=== PATIENT | male | born 1930 | race Caucasian/White ===

== ENCOUNTER 2018-06-24 09:07 | Emergency (ER) | payer MEDICARE, BC ==
[2018-06-24 09:14] VITALS: TEMP 98.2
--- NOTE | 2018-06-24 10:00 | ED ---
Male Urogenital HPI - General Chief complaint: Urogenital Stated complaint: bladder ca pt Time Seen by Provider: 06/24/18 09:16 Source: patient Mode of arrival: wheelchair Limitations: no limitations - History of Present Illness Initial comments: 88-year-old male patient with past medical history significant for bladder cancer and occasional hematuria presents to the emergency department today for complaints of acute urinary retention and suprapubic discomfort. Patient is a transfer from [facility]. Patient reports that starting this morning he was unable to urinate and developed significant suprapubic discomfort. Patient states that he presented to [facility] and they placed a 22 fr Dover catheter. They were unable to keep the catheter from becoming obstructed so they sent him here for possible continuous bladder irrigation and urology consult. Upon arrival patient reports that he feels the catheter is obstructed and he is again developing suprapubic discomfort. Patient denies any fever, chills, nausea, vomiting, constipation, or diarrhea. Patient is also reporting leg pain from the knees down. Patient states his been going on for several weeks and daughter reports it may be related to his arthritis. Daughter reports the patient does have a blood disorder however they 're unable to determine the exact nature of the condition. She reports that he does develop epistaxis occasionally and bruises easily. Patient denies any recent rash, shortness breath, chest pain, back pain, numbness, tingling, dizziness, weakness, headache, visual changes, or any other complaints. Patient does have bladder cancer which they are unable to treat due MD Complaint: testicle pain - Related Data Home Medications Medication Instructions Recorded Confirmed Acetaminophen Tab [Tylenol Tab] 650 mg PO Q6H PRN 06/24/18 06/24/18 Ammonium Lactate Cream [Lac-Hydrin 1 applic TOPICAL BID PRN 06/24/18 06/24/18 12% Cream] Bethanechol [Urecholine] 10 mg PO TID 06/24/18 06/24/18 Escitalopram [Lexapro] 5 mg PO DAILY 06/24/18 06/24/18 Furosemide [Lasix] 40 mg PO BID 06/24/18 06/24/18 LORazepam [Ativan] 1 mg PO QID PRN 06/24/18 06/24/18 Lisinopril [Zestril] 10 mg PO DAILY 06/24/18 06/24/18 Mirtazapine [Remeron] 15 mg PO HS 06/24/18 06/24/18 Potassium Chloride ER [K-Dur 10] 10 meq PO AC-BID 06/24/18 06/24/18 Pravastatin Sodium [Pravachol] 20 mg PO DAILY 06/24/18 06/24/18 Sennosides/Docusate Sodium [Kaia 1 tab PO DAILY PRN 06/24/18 06/24/18 Colace] Tamsulosin HCl [Flomax] 0.4 mg PO DAILY 06/24/18 06/24/18 busPIRone HCL 15 mg PO BID 06/24/18 06/24/18 hydrOXYzine HCL 10 mg PO TID PRN 06/24/18 06/24/18 traMADol HCL [Ultram] 50 mg PO Q6H PRN 06/24/18 06/24/18 traMADol HCL [traMADol HCL ER] 100 mg PO Q12H 06/24/18 06/24/18 Allergies Allergy/AdvReac Type Severity Reaction Status Date / Time Iodinated Contrast- Oral and Allergy Anaphylaxis Verified 06/24/18 10:00 IV Dye niacin Allergy Itching Verified 06/24/18 10:00 shellfish derived [Shellfish] Allergy Anaphylaxis Verified 06/24/18 10:00 Review of Systems ROS Statement: Those systems with pertinent positive or pertinent negative responses have been documented in the HPI. ROS Other: All systems not noted in ROS Statement are negative. Past Medical History Past Medical History: Coronary Artery Disease (CAD), Heart Failure, CVA/TIA, Diabetes Mellitus, Hyperlipidemia, Hypertension Additional Past Medical History / Comment(s): Bladder cancer History of Any Multi-Drug Resistant Organisms: None Reported Past Surgical History: Cardiac Valve Replacement, Cholecystectomy, Pacemaker Past Psychological History: Anxiety Smoking Status: Former smoker Past Alcohol Use History: None Reported Past Drug Use History: None Reported General Exam Limitations: no limitations General appearance: alert, in no apparent distress, other (This is a well- developed, well-nourished elderly male patient in no acute distress. Vital signs upon presentation are temperature 98.2F, pulse 90, respirations 18, blood pressure 158/54, pulse ox 98% on room air.) Eye exam: Present: normal appearance, PERRL, EOMI. Absent: scleral icterus, conjunctival injection, periorbital swelling ENT exam: Present: normal exam, normal oropharynx, mucous membranes moist Respiratory exam: Present: normal lung sounds bilaterally. Absent: respiratory distress, wheezes, rales, rhonchi, stridor Cardiovascular Exam: Present: regular rate, normal rhythm, normal heart sounds. Absent: systolic murmur, diastolic murmur, rubs, gallop, clicks GI/Abdominal exam: Present: soft, tenderness (Suprapubic discomfort), normal bowel sounds. Absent: distended, guarding, rebound, rigid Neurological exam: Present: alert, oriented X3, CN II-XII intact Psychiatric exam: Present: normal affect, normal mood Skin exam: Present: warm, dry, intact, normal color, other (Bilateral arms exhibit ecchymosis.). Absent: rash Course Vital Signs 06/24/18 06/24/18 09:10 11:37 Temperature 98.2 F Pulse Rate 90 82 Respiratory 18 16 Rate Blood Pressure 158/54 162/54 O2 Sat by Pulse 98 99 Oximetry Medical Decision Making - Medical Decision Making 88-year-old male patient presented to the emergency department today as a transfer from [facility] for acute urinary retention and hematuria. Physical examination is relatively unremarkable. Labs reviewed and revealed a hemoglobin of 8.8. BUN is 38, creatinine is 1.83. Patient was given 500 mL of normal saline. Urinalysis did show 3+ protein, large amount of blood, small leukocyte esterase, greater than 182 red blood cells, 97 white blood cells. Patient is being treated at [facility] for bladder cancer. I did call and speak to his urologic oncologist Dr. López, he recommended patient be admitted medically with him on consult given the patients complex medical conditions. I spoke to the ER physican at [facility] Dr. Monroe who refused transfer stating that their general medical floor was full and they were holding in the ER. I did discuss this with the patient, we did discuss admission here. Patient reported that he would rather not be admitted here that he wanted to go home. I did call Dr. López's office and we did set up an appointment with him on 07/01/18. Patient does have 22 Fr [address] catheter in place that is patent and draining. Patient is hemodynamically stable with normal vital signs. He will Be discharged home to follow-up with the urologist. He is also instructed to follow-up with his primary care physician for repeat kidney function and CBC testing. Urine has been sent for culture. I discussed results, findings, and plan with both the patient and his daughter, they are agreeable. - Lab Data Result diagrams: 06/24/18 10:03 06/24/18 10:03 Lab Results 06/24/18 06/24/18 06/24/18 Range/Units 10:03 10:03 10:03 WBC 7.3 (3.8-10.6) k/uL RBC 3.05 L (4.30-5.90) m/uL Hgb 8.8 L (13.0-17.5) gm/dL Hct 27.0 L (39.0-53.0) % MCV 88.4 (80.0-100.0) fL MCH 28.8 (25.0-35.0) pg MCHC 32.5 (31.0-37.0) g/dL RDW 16.3 H (11.5-15.5) % Plt Count 203 (150-450) k/uL Neutrophils % 77 % Lymphocytes % 13 % Monocytes % 7 % Eosinophils % 1 % Basophils % 0 % Neutrophils # 5.6 (1.3-7.7) k/uL Lymphocytes # 0.9 L (1.0-4.8) k/uL Monocytes # 0.5 (0-1.0) k/uL Eosinophils # 0.1 (0-0.7) k/uL Basophils # 0.0 (0-0.2) k/uL Anisocytosis Slight PT 10.5 (9.0-12.0) sec INR 1.1 (<1.2) APTT 24.5 (22.0-30.0) sec Sodium 139 (137-145) mmol/L Potassium 4.7 (3.5-5.1) mmol/L Chloride 104 (98-107) mmol/L Carbon Dioxide 26 (22-30) mmol/L Anion Gap 9 mmol/L BUN 38 H (9-20) mg/dL Creatinine 1.83 H (0.66-1.25) mg/dL Est GFR (CKD-EPI)AfAm 38 (>60 ml/min/1.73 sqM) Est GFR (CKD-EPI)NonAf 33 (>60 ml/min/1.73 sqM) Glucose 116 H (74-99) mg/dL Calcium 8.9 (8.4-10.2) mg/dL Total Bilirubin 1.6 H (0.2-1.3) mg/dL AST 16 L (17-59) U/L ALT 17 L (21-72) U/L Alkaline Phosphatase 62 (38-126) U/L Total Protein 7.1 (6.3-8.2) g/dL Albumin 3.6 (3.5-5.0) g/dL Urine Color Urine Appearance (Clear) Urine pH (5.0-8.0) Ur Specific Dunn (1.001-1.035) Urine Protein (Negative) Urine Glucose (UA) (Negative) Urine Ketones (Negative) Urine Blood (Negative) Urine Nitrite (Negative) Urine Bilirubin (Negative) Urine Urobilinogen (<2.0) mg/dL Ur Leukocyte Esterase (Negative) Urine RBC (0-5) /hpf Urine WBC (0-5) /hpf 07/30/18 Range/Units 10:10 WBC (3.8-10.6) k/uL RBC (4.30-5.90) m/uL Hgb (13.0-17.5) gm/dL Hct (39.0-53.0) % MCV (80.0-100.0) fL MCH (25.0-35.0) pg MCHC (31.0-37.0) g/dL RDW (11.5-15.5) % Plt Count (150-450) k/uL Neutrophils % % Lymphocytes % % Monocytes % % Eosinophils % % Basophils % % Neutrophils # (1.3-7.7) k/uL Lymphocytes # (1.0-4.8) k/uL Monocytes # (0-1.0) k/uL Eosinophils # (0-0.7) k/uL Basophils # (0-0.2) k/uL Anisocytosis PT (9.0-12.0) sec INR (<1.2) APTT (22.0-30.0) sec Sodium (137-145) mmol/L Potassium (3.5-5.1) mmol/L Chloride (98-107) mmol/L Carbon Dioxide (22-30) mmol/L Anion Gap mmol/L BUN (9-20) mg/dL Creatinine (0.66-1.25) mg/dL Est GFR (CKD-EPI)AfAm (>60 ml/min/1.73 sqM) Est GFR (CKD-EPI)NonAf (>60 ml/min/1.73 sqM) Glucose (74-99) mg/dL Calcium (8.4-10.2) mg/dL Total Bilirubin (0.2-1.3) mg/dL AST (17-59) U/L ALT (21-72) U/L Alkaline Phosphatase (38-126) U/L Total Protein (6.3-8.2) g/dL Albumin (3.5-5.0) g/dL Urine Color Dark Red Urine Appearance Turbid (Clear) Urine pH 8.0 (5.0-8.0) Ur Specific Dunn 1.018 (1.001-1.035) Urine Protein 3+ H (Negative) Urine Glucose (UA) Negative (Negative) Urine Ketones Negative (Negative) Urine Blood Large H (Negative) Urine Nitrite Negative (Negative) Urine Bilirubin Negative (Negative) Urine Urobilinogen <2.0 (<2.0) mg/dL Ur Leukocyte Esterase Small H (Negative) Urine RBC >182 H (0-5) /hpf Urine WBC 97 H (0-5) /hpf Disposition Clinical Impression: Urinary retention, Hematuria Disposition: HOME SELF-CARE Condition: Good Instructions: Urinary Retention in Men (ED), Dover Catheter Placement and Care (ED), Hematuria (ED) Additional Instructions: Increase fluids. Dr. López will see you in his office on Sunday07/01/18 - they will call you with an exact time. They are also attempting to get you an appointment with the radiation oncologist for the same day. If you have new, worsening, or concerning symptoms present to the nearest emergency department for further evaluation. You should also follow up with your primary care physician to have repeat CBC and Kidney Function performed. Is patient prescribed a controlled substance at d/c from ED?: No Referrals: Nalini Dahl DO [Primary Care Provider] - 1-2 days Time of Disposition: 13:48
[2018-06-24 10:18] LABS: Anisocytosis Slight; Basophils % (A) 0 %; Eosinophils # (A) 0.1 k/uL (0-0.7); Eosinophils % (A) 1 %; HGB 8.8 gm/dL (13.0-17.5); Lymphocytes # (A) 0.9 k/uL (1.0-4.8); Lymphocytes % (A) 13 %; MCH 28.8 pg (25.0-35.0); MCHC 32.5 g/dL (31.0-37.0); MCV 88.4 fL (80.0-100.0); Mean Platelet Volume 8.3; Monocytes # (A) 0.5 k/uL (0-1.0); Monocytes % (A) 7 %; Neutrophils # (A) 5.6 k/uL (1.3-7.7); Neutrophils % (A) 77 %; Platelet Count 203 k/uL (150-450); RBC 3.05 m/uL (4.30-5.90); RDW 16.3 % (11.5-15.5); WBC 7.3 k/uL (3.8-10.6)
[2018-06-24 10:26] LABS: INR 1.1 (<1.2); Partial Thromboplastin Time 24.5 sec (22.0-30.0); Prothrombin Time 10.5 sec (9.0-12.0)
[2018-06-24 10:37] LABS: Albumin 3.6 g/dL (3.5-5.0); Calcium 8.9 mg/dL (8.4-10.2); Potassium 4.7 mmol/L (3.5-5.1); Total Bilirubin 1.6 mg/dL (0.2-1.3); Total Protein 7.1 g/dL (6.3-8.2)
[2018-06-24 10:37] LABS: Appearance,Urine Turbid (Clear); Bilirubin,Urine Negative (Negative); Blood,Urine Large (Negative); Color,Urine Dark Red; Glucose,Urine (UA) Negative (Negative); Ketones,Urine Negative (Negative); Leukocyte Esterase,Urine Small (Negative); Nitrite,Urine Negative (Negative); Protein,Urine 3+ (Negative); RBC,Urine >182 /hpf (0-5); Urobilinogen,Urine <2.0 mg/dL (<2.0); WBC,Urine 97 /hpf (0-5)
[2018-06-24 11:04] LABS: Specific Gravity,Urine 1.018 (1.001-1.035)
[2018-06-24] MEDS ORDERED: LORazepam 2 MG/ML INJ IV STA (11:24)
[2018-06-24 11:38] VITALS: BP 162/54; PULSE 82; RESP 16
== END 2018-06-24 15:00 | disposition home or self-care (01) ==
LOC: EC 09:07
DX: R33.9 Retention of urine, unspecified (principal); R31.9 Hematuria, unspecified; R82.99 Other abnormal findings in urine; R80.9 Proteinuria, unspecified; R58 Hemorrhage, not elsewhere classified; C67.9 Malignant neoplasm of bladder, unspecified; D75.9 Disease of blood and blood-forming organs, unspecified; N50.819 Testicular pain, unspecified; R04.0 Epistaxis; M25.561 Pain in right knee; M25.562 Pain in left knee; E78.5 Hyperlipidemia, unspecified; I11.0 Hypertensive heart disease with heart failure; I50.9 Heart failure, unspecified; I25.10 Atherosclerotic heart disease of native coronary artery without angina pectoris; F41.9 Anxiety disorder, unspecified; Z87.891 Personal history of nicotine dependence; Z79.891 Long term (current) use of opiate analgesic; Z79.899 Other long term (current) drug therapy; Z88.8 Allergy status to other drugs, medicaments and biological substances; Z91.013 Allergy to seafood; Z91.041 Radiographic dye allergy status
CPT/HCPCS: 51798; 36415; 80053; 85025; 85610; 85730; 81001; 99284; 96374; J2060